=== PATIENT | female | born 1960 | race Two or more races ===

== ENCOUNTER 2017-02-07 13:16 | Emergency (ER) | payer OTHER ==
[~2017-02-07] VITALS: Ht 337.8 cm; Wt 64.4 kg
[2017-02-07] MEDS ORDERED: SYNTHROID50 MCG (13:24)
== END 2017-02-07 18:45 | disposition home or self-care (01) ==
LOC: ER 13:16
DX: J11.1 Influenza due to unidentified influenza virus with other respiratory manifestations (principal)